=== PATIENT | male | born 1960 | race Caucasian/White ===

== ENCOUNTER → 2017-09-18 12:30 | Outpatient (CLI) | payer BC, SELFPAY ==
--- NOTE | 2017-09-18 | DI.US.S_ITS ---
PROCEDURE: US PERIPH VENOUS LOW EXTREM LT INDICATIONS: Left leg cellulitis TECHNIQUE: Real-time imaging, as well as color and pulse Doppler interrogation, were performed of the lower extremity deep veins from the inguinal ligament to the popliteal fossa. COMPARISON: None. FINDINGS: The deep veins are normally compressible, and free of intraluminal thrombus. Color and pulse Doppler demonstrate normal phasic intraluminal flow. There is normal augmentation response to distal compression maneuver. IMPRESSION: Negative for DVT Dictated by: Noah Jane M.D. on 09/18/2017 at 14:19 Approved by: Noah Jane M.D. on 09/18/2017 at 14:19
== END ==
PROVIDERS: Family Provider Family Medicine; PCP Family Medicine; Visit Provider Family Medicine
DX: L03.116 Cellulitis of left lower limb (principal)
CPT/HCPCS: 93971

== ENCOUNTER → 2017-09-21 12:59 | Outpatient (CLI) | payer BC, SELFPAY | PROVIDERS: Family Provider Family Medicine; PCP Family Medicine; Visit Provider Internal Medicine | DX: L97.822 Non-pressure chronic ulcer of other part of left lower leg with fat layer exposed (principal); L03.116 Cellulitis of left lower limb; E11.628 Type 2 diabetes mellitus with other skin complications | CPT/HCPCS: 11042; 11045; 87070; 87077; 87186; 87205; 99215 ==

== ENCOUNTER → 2017-09-21 17:10 | Outpatient (REF) | payer BC, SELFPAY | LOC: LAB 17:10 | PROVIDERS: Family Provider Family Medicine; PCP Family Medicine; Visit Provider Internal Medicine | DX: L08.9 Local infection of the skin and subcutaneous tissue, unspecified (principal) | CPT/HCPCS: 87070; 87075; 87077; 87186; 87205 ==

== ENCOUNTER → 2017-09-28 09:22 | Outpatient (CLI) | payer BC, SELFPAY | PROVIDERS: Family Provider Family Medicine; PCP Family Medicine; Visit Provider Internal Medicine | DX: L03.116 Cellulitis of left lower limb (principal); B95.2 Enterococcus as the cause of diseases classified elsewhere; A49.01 Methicillin susceptible Staphylococcus aureus infection, unspecified site | CPT/HCPCS: 99213 ==

== ENCOUNTER → 2017-10-02 15:38 | Outpatient (CLI) | payer BC, SELFPAY | PROVIDERS: Family Provider Family Medicine; PCP Family Medicine; Visit Provider Internal Medicine | DX: L97.821 Non-pressure chronic ulcer of other part of left lower leg limited to breakdown of skin (principal); L03.116 Cellulitis of left lower limb; L84 Corns and callosities | CPT/HCPCS: 99212 ==

== ENCOUNTER → 2017-10-09 09:28 | Outpatient (CLI) | payer BC, SELFPAY ==
--- NOTE | 2017-10-09 | OV.WND_ITS ---
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 Allergies NKDA HPI This information was obtained from the patient 10/09/17. Seen by Dr. Luna. The patient does not report drainage associated with the left lower leg cellulitis nor non-pressure ulcers since his last visit. 10/02/17. Seen by Dr. Luna. The patient will complete his course of levofloxacin today that's treating refractory cellulitis of the left lower leg and he does not report significant drainage from the associated non-pressure ulcers nor pain in the leg. His blood sugars continue to be well controlled and he's applying Kersal as recommended to the heave callus over the plantar surface of the left 1st toe. He states the bleeding reported last week from this site has stopped also. 09/28/17. Seen by Dr. Luna. The patient was started on Levofloxacin following his last visit for the MSSA and Enterococcus positive wound culture that was taken of the left lower leg non- pressure ulcer. He reports some sleeplessness in the past 2 nights and asks whether this could be related to the levofloxacin. In general he feels the leg swelling and erythema has improved and there's been minimal drainage since his visit last week. Of note, he was previously on Bactrim to which the MSSA was resistant and which wound not cover for Enterococcus. 09/21/17. Seen by Dr. Luna. The patient's new to our clinic and presents with left lower leg non-pressure ulcers that started during a severe episode of cellulitis about 3 weeks ago. He continues on Bactrim and feels the cellulitis continues to resolve and he does not report associated pain or feeling unwell in general. He has diabetes and his blood sugars are historically fairly well controlled with his most recent A1c around 7. Past Medical History This information was obtained from the patient Patient has a medical history of: Type II Diabetes Hyponatremia - 09/04/2017 Cellulitis - 09/04/2017 Arthritis Hypertension Back pain Complaints and Symptoms This information was obtained from the patient Patient complains of: General Notes: I have reviewed and concur with the Review of Systems and Past Family Social History documents completed by the clinician, I have reviewed and concur with the Wound Assessment document completed by the clinician Cardiovascular (Central/Peripheral): Lower extremity (leg) swelling Integumentary (Hair/Skin/Nails): Open Sore Neurological: Loss of Protective Sensation Prior Wound History: Drainage, Erythema Patient denies complaints or symptoms related to: Cardiovascular (Central/Peripheral): Intermittent Claudication, Lower extremity (leg) resting pain Constitutional Symptoms (General Health): Chills, Fever Ear/Nose/Mouth/Throat: Hearing Loss / Aid Hematologic/Lymphatic: Bleeding / Clotting Disorders, Bleeding Tendency Musculoskeletal: Assistive Devices Prior Wound History: Pain Psychiatric: Memory Loss Respiratory: Oxygen Use, Shortness of Breath OBJECTIVE Constitutional BP elevated; Afebrile; Alert and in no distress. Well developed. Alert. Clean appearing.. Height/Length: 72 in (182.88 cm), Weight: 277.8 lbs (126.27 kgs), BMI: 37.7, Temperature: 97.9 ?F (36.61 ?C), Pulse: 88 bpm, Respiratory Rate: 18 breaths/min, Blood Pressure: 148/88 mmHg, Capillary Blood Glucose: 138 mg/dl, Pulse Oximetry: 97 %. Vital Signs Notes: Glucose per patient. Integumentary (Hair, Skin) Refer to appropriate clinician wound documentation for this visit.. Wound #2 Left, Medial Leg is an acute Full Thickness Cellulitis and has received an outcome of Healed - no new wound(s). Subsequent wound encounter measurements are 0cm length x 0cm width with no measurable depth, with an area of 0 sq cm . No tunneling has been noted. No sinus tract has been noted. No undermining has been noted. There was no drainage noted. The patient reports a wound pain of level 0/10. The wound margin is irregular. Wound bed has Yes epithelialization, No eschar, No slough, No granulation. The periwound skin moisture is normal. The periwound skin exhibited: Edema, Ecchymosis. The periwound skin did not exhibit: Erythema. The temperature of the periwound skin is Warm. Periwound skin does not exhibit signs or symptoms of infection. Local Pulse is Doppler. Neurological: Cranial nerves grossly intact with symmetric function normal by informal observation.. Additional Information ACE/Vascular Completed?: Did have two Venous/Arterial studies done. One at [facility] and then on September 20 at [facility]. ASSESSMENT Active Problems ICD-10 (Encounter Diagnosis) L97.822 - Non-pressure chronic ulcer of other part of left lower leg with fat layer exposed PLAN Wound Orders: Wound #2 Left, Medial Leg Cleanser May Shower. - May shower Additional Orders: Topical Treatments Moisturizing lotion to surround skin. - Apply Ammonium Lactate lotion to leg for one week. Follow-Up Appointments Other information: If you develop fever, chills, increased pain, drainage, redness or swelling please call our office. If after hours, respond to the ER. Should you experience any significant changes in your wound(s) or have any questions regarding your home care instructions please contact the wound center @ [phone]. If after hours, contact your primary care physician or go to the hospital emergency room. - No further appointment at this time. Discharge from Outpatient Services. Scribing Attestation I attest, as the nurse, that I scribed these orders for the physician. I've reviewed the clinician's documentation and agree with the evaluation and plan as written. In addition the patient's last remiaining complex wound is now healed. The patient is invited to return to our clinic for treatment of any future complex wounds. Post wound care and strategies to avoid recurrences were discussed. Electronic Signature(s) Signed By: Date: Armaan Luna MD 10/10/2017 10:10:58 Armaan Luna MD 10/10/2017 10:10:58 Entered By: Armaan Luna on 10/09/2017 13:34:00
== END ==
PROVIDERS: Family Provider Family Medicine; PCP Family Medicine; Visit Provider Internal Medicine
DX: Z48.817 Encounter for surgical aftercare following surgery on the skin and subcutaneous tissue (principal)
CPT/HCPCS: 99212

== ENCOUNTER → 2018-06-04 09:44 | Outpatient (CLI) | payer OTHER, SELFPAY ==
[2018-06-04 12:18] LABS: Uric Acid 6.5 mg/dL (3.5-8.5)
== END ==
PROVIDERS: PCP Family Medicine; Visit Provider Family Medicine
DX: M10.9 Gout, unspecified (principal)
CPT/HCPCS: 36415; 84550

== ENCOUNTER → 2019-05-02 10:40 | Outpatient (CLI) | payer OTHER, SELFPAY | PROVIDERS: Family Provider Family Medicine; PCP Family Medicine; Referring Provider Podiatrist; Visit Provider Family Medicine | DX: E11.621 Type 2 diabetes mellitus with foot ulcer (principal); L97.511 Non-pressure chronic ulcer of other part of right foot limited to breakdown of skin; E11.40 Type 2 diabetes mellitus with diabetic neuropathy, unspecified; R60.0 Localized edema | CPT/HCPCS: 11042; 99214 ==

== ENCOUNTER → 2019-05-08 09:55 | Outpatient (CLI) | payer OTHER, SELFPAY | PROVIDERS: Family Provider Family Medicine; PCP Family Medicine; Visit Provider Family Medicine | DX: E11.621 Type 2 diabetes mellitus with foot ulcer (principal); L97.511 Non-pressure chronic ulcer of other part of right foot limited to breakdown of skin; E11.40 Type 2 diabetes mellitus with diabetic neuropathy, unspecified; R60.0 Localized edema | CPT/HCPCS: 11042 ==

== ENCOUNTER → 2019-05-16 14:11 | Outpatient (CLI) | payer OTHER, SELFPAY | PROVIDERS: Family Provider Family Medicine; PCP Family Medicine; Visit Provider Family Medicine | DX: E11.621 Type 2 diabetes mellitus with foot ulcer (principal); L97.511 Non-pressure chronic ulcer of other part of right foot limited to breakdown of skin; R60.0 Localized edema; E11.40 Type 2 diabetes mellitus with diabetic neuropathy, unspecified | CPT/HCPCS: 97597 ==

== ENCOUNTER → 2019-05-24 12:55 | Outpatient (CLI) | payer OTHER, SELFPAY | PROVIDERS: Family Provider Family Medicine; PCP Family Medicine; Visit Provider Family Medicine | DX: E11.621 Type 2 diabetes mellitus with foot ulcer (principal); L97.511 Non-pressure chronic ulcer of other part of right foot limited to breakdown of skin; E11.40 Type 2 diabetes mellitus with diabetic neuropathy, unspecified | CPT/HCPCS: 11042 ==

== ENCOUNTER → 2019-05-30 13:05 | Outpatient (CLI) | payer OTHER, SELFPAY | PROVIDERS: Family Provider Family Medicine; PCP Family Medicine; Visit Provider Family Medicine | DX: E11.621 Type 2 diabetes mellitus with foot ulcer (principal); L97.511 Non-pressure chronic ulcer of other part of right foot limited to breakdown of skin; E11.40 Type 2 diabetes mellitus with diabetic neuropathy, unspecified | CPT/HCPCS: 11042 ==

== ENCOUNTER → 2019-06-05 10:52 | Outpatient (CLI) | payer OTHER, SELFPAY | PROVIDERS: Family Provider Family Medicine; PCP Family Medicine; Referring Provider Family Medicine; Visit Provider Family Medicine | DX: E11.621 Type 2 diabetes mellitus with foot ulcer (principal); L97.511 Non-pressure chronic ulcer of other part of right foot limited to breakdown of skin; E11.40 Type 2 diabetes mellitus with diabetic neuropathy, unspecified; R60.0 Localized edema | CPT/HCPCS: 11042; 87070; 87075; 87077; 87147; 87186; 87205 ==

== ENCOUNTER → 2019-06-05 11:49 | Outpatient (CLI) | payer OTHER, SELFPAY ==
--- NOTE | 2019-06-05 | DI.RAD.S_ITS ---
PROCEDURE: XR FOOT RT MIN 3V INDICATIONS: E11.621 TECHNIQUE: 3 views of the foot were acquired. COMPARISON: [facility], CR, XR FOOT 3 VIEWS WEIGHT BEARING LEFT, 03/21/2018, 8:16. FINDINGS: Bones: No fractures or dislocations. No suspicious bony lesions. There is mild metatarsus primus varus, without significant hallux valgus. There is mild valgus angulation at the third MTP joint. Plantar fascia and Achilles tendon insertion spurring and calcification is present, indicating a moderate degree of enthesopathy. Soft tissues: No tibiotalar joint effusion. Achilles tendon appears normal. IMPRESSION: No trauma found. Podiatry related findings as discussed. Dictated by: Guillermo Nguyen M.D. on 06/05/2019 at 12:46 Approved by: Guillermo Nguyen M.D. on 06/05/2019 at 12:48
== END ==
PROVIDERS: Family Provider Family Medicine; PCP Family Medicine; Referring Provider Family Medicine; Visit Provider Family Medicine
DX: E11.621 Type 2 diabetes mellitus with foot ulcer (principal); M20.31 Hallux varus (acquired), right foot; M77.9 Enthesopathy, unspecified; L97.511 Non-pressure chronic ulcer of other part of right foot limited to breakdown of skin; E11.40 Type 2 diabetes mellitus with diabetic neuropathy, unspecified; R60.0 Localized edema
CPT/HCPCS: 11042; 73630; 87070; 87075; 87077; 87147; 87186; 87205

== ENCOUNTER → 2019-06-13 10:41 | Outpatient (CLI) | payer OTHER, SELFPAY | PROVIDERS: Family Provider Family Medicine; PCP Family Medicine; Referring Provider Family Medicine; Visit Provider Family Medicine | DX: E11.621 Type 2 diabetes mellitus with foot ulcer (principal); L97.511 Non-pressure chronic ulcer of other part of right foot limited to breakdown of skin; L08.9 Local infection of the skin and subcutaneous tissue, unspecified; E11.40 Type 2 diabetes mellitus with diabetic neuropathy, unspecified | CPT/HCPCS: 11042; 99214 ==

== ENCOUNTER → 2019-06-19 10:03 | Outpatient (CLI) | payer OTHER, SELFPAY | PROVIDERS: Family Provider Family Medicine; PCP Family Medicine; Referring Provider Family Medicine; Visit Provider Family Medicine | DX: E11.621 Type 2 diabetes mellitus with foot ulcer (principal); L97.511 Non-pressure chronic ulcer of other part of right foot limited to breakdown of skin | CPT/HCPCS: 11042 ==

== ENCOUNTER → 2019-07-03 10:17 | Outpatient (CLI) | payer OTHER, SELFPAY | PROVIDERS: Family Provider Family Medicine; PCP Family Medicine; Referring Provider Family Medicine; Visit Provider Family Medicine | DX: E11.621 Type 2 diabetes mellitus with foot ulcer (principal); L97.511 Non-pressure chronic ulcer of other part of right foot limited to breakdown of skin | CPT/HCPCS: 11042 ==

== ENCOUNTER → 2019-07-10 09:47 | Outpatient (CLI) | payer OTHER, SELFPAY | PROVIDERS: Family Provider Family Medicine; PCP Family Medicine; Referring Provider Family Medicine; Visit Provider Family Medicine | DX: E11.621 Type 2 diabetes mellitus with foot ulcer (principal); L97.511 Non-pressure chronic ulcer of other part of right foot limited to breakdown of skin | CPT/HCPCS: 11042 ==

== ENCOUNTER → 2019-07-17 09:35 | Outpatient (CLI) | payer OTHER, SELFPAY | PROVIDERS: Family Provider Family Medicine; PCP Family Medicine; Referring Provider Family Medicine; Visit Provider Family Medicine | DX: E11.621 Type 2 diabetes mellitus with foot ulcer (principal); L97.511 Non-pressure chronic ulcer of other part of right foot limited to breakdown of skin | CPT/HCPCS: 11042 ==

== ENCOUNTER → 2019-08-22 09:26 | Outpatient (CLI) | payer OTHER, SELFPAY | PROVIDERS: Family Provider Family Medicine; PCP Family Medicine; Referring Provider Family Medicine; Visit Provider Family Medicine | DX: E11.621 Type 2 diabetes mellitus with foot ulcer (principal); E11.40 Type 2 diabetes mellitus with diabetic neuropathy, unspecified | CPT/HCPCS: 99212; 99213 ==

== ENCOUNTER → 2020-03-03 16:07 | Outpatient (CLI) | payer OTHER, SELFPAY ==
--- NOTE | 2020-03-03 16:11 | DI.RAD.S_ITS ---
PROCEDURE: XR RIBS RT MIN 3V W CXR 1V INDICATIONS: RIGHT POST RIB PAIN TECHNIQUE: To views of the right ribs were acquired, along with a single view chest. COMPARISON: None. FINDINGS: Surgical changes and devices: None. Bones and chest wall: No fractures or dislocations. No suspicious bony lesions. Overlying soft tissues appear unremarkable. Lungs and pleura: No pleural effusions or pneumothorax. Lungs appear clear. Mediastinum: Mediastinal contours appear normal. Heart size is normal. IMPRESSION: No rib trauma found, source of right-sided posterior rib pain is not seen. Depending on the clinical status follow-up by nuclear medicine bone scan may become necessary. Dictated by: Guillermo Nguyen M.D. on 03/03/2020 at 17:28 Approved by: Guillermo Nguyen M.D. on 03/03/2020 at 17:29
== END ==
PROVIDERS: Family Provider Family Medicine; PCP Family Medicine; Referring Provider Family Medicine; Visit Provider Family Medicine
DX: R07.81 Pleurodynia (principal)
CPT/HCPCS: 71101

== ENCOUNTER 2020-05-06 11:15 | Outpatient (RCR) | payer OTHER, SELFPAY ==
--- NOTE | 2020-04-16 17:54 | PT.OIE ---
Current Diagnoses Pain in right shoulder (04/16/20) Stiffness of right shoulder, not elsewhere classified (04/16/20) Pain in thoracic spine (04/16/20) Dorsalgia, unspecified (04/16/20) Abnormal posture (04/16/20) Sprain of right rotator cuff capsule, subsequent encounter (04/16/20) Visit Care Team Role Provider Type Newton Purdy MD Attending Provider Physician Primary Care Provider Referring Provider Specialty: [facility] Address: [address] [place] [address], [facility] [place], [facility] Email: [email or web address] Physical Therapy Initial Evaluation PT-OP-A Visit Information Start: 04/16/20 17:05 Freq: Status: Active Protocol: Document 04/16/20 09:45 DCW (Rec: 04/16/20 17:54 DCW [id number]) Out-Patient Physical Therapy Visit Information Visit Information Visit Type Initial Evaluation Visit Start Time 09:45 Visit Stop Time 10:25 Total Visit Minutes 40 Visit Number 1 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 Pt notes that he was reshingling his roof, and at two separate times, slipped on the plywood and fell onto his back. Notes he did not fall off the roof, just slipped and landed on the roof. Pt admits that after the second time, he just laid there for 30 minutes to make sure he did not injure himself severely. Notes his back pain did not begin immediately, he thinks the actual pain started in December, but has been worsening since then. Pain is mainly on the right side, and feels better if he positions himself into right lateral trunk flexion, which is giving him very poor posture. Additionally, pt notes that one month ago, his shoulder began to get really sore, and his PCP told him it was a rotator cuff problem and gave him anti-inflammatory pills, which unfortunately pt had a bad reaction to and needed to stop taking them. Prior Treatments and Tests Thoracic x-ray: IMPRESSION: No rib trauma found, source of right-sided posterior rib pain is not seen. Depending on the clinical status follow-up by nuclear medicine bone scan may become necessary.per Guillermo Nguyen M.D. on 2019 PT-OP-C Subjective Start: 04/16/20 17:05 Freq: Status: Active Protocol: Document 04/16/20 09:45 DCW (Rec: 04/16/20 17:54 [facility] [id number]) OP-PT Subjective Patient Comments Patient Comments I'm just falling apart dramatically. Patient Questionnaires Oswestry Low Back Index Oswestry Score 38% Oswestry Impairment 20 to 39% Impaired (Score 20- 39) OP-PT Pain Assessment Location Right Shoulder Intensity 5 Scale Used Numeric (0 - 10) Right Back Pain Location Details Right thoracic spine Intensity 6 Scale Used Numeric (0 - 10) PT-OP-E Functional Tests Start: 04/16/20 17:05 Freq: Status: Active Protocol: Document 04/16/20 09:45 DCW (Rec: 04/16/20 17:54 [facility] [id number]) Functional Tests Apley's Scratch Test Action 1- Left Posterior opposite should Action 1- Right Anterior opposite shoulder Action 2- Left T5 Action 2- Right C7 Action 3- Left T9 Action 3- Right L3 PT-OP-F Manual Assessment Start: 04/16/20 17:05 Freq: Status: Active Protocol: Document 04/16/20 09:45 DCW (Rec: 04/16/20 17:54 [facility] [id number]) Manual Assessments Soft Tissue Assessment Soft Tissue Mobility Assessment Moderate-severe tone with tenderness to palpation 2/4: pain with wincing along R Thoracic paraspinals. Limits left spinal rotation and lateral flexion secondary to pain. At rest, pt sits with a right scoliosis for comfort. Joint Mobility Assessment Joint Mobility Assessment Severe tone in right pec results in depression and anterior shift of right GH joint. PT-OP-J Posture/Palpation/Skin Start: 04/16/20 17:05 Freq: Status: Active Protocol: Document 04/16/20 09:45 DCW (Rec: 04/16/20 17:54 DCW [id number]) Posture Evaluation Position Sitting T-Spine Posture Flexible Scoliosis on (R) Shoulder Posture (R) Forward Scapula Posture (R) Protracted,(R) Depressed PT-OP-L Special Tests Start: 04/16/20 17:05 Freq: Status: Active Protocol: Document 04/16/20 09:45 DCW (Rec: 04/16/20 17:54 DCW [id number]) Special Tests Shoulder Special Tests Passive ER Rotator Cuff Test Results Positive R Empty Can Test Results Positive R Lift-Off Rotator Cuff Test Results Positive R Painful Arc Test Results Positive R Belly Press Test Results Negative PT-OP-Q Treatments Start: 04/16/20 17:05 Freq: Status: Active Protocol: Document 04/16/20 09:45 DCW (Rec: 04/16/20 17:54 DCW [id number]) Therapeutic Exercises Sitting Exercises 1 Sitting Exercise Name Lateral trunk flexion Side left Standing Exercises 1 Standing Exercise Name Doorway/corner pec stretch Side bilateral PT-OP-T Assessment and Plan Start: 04/16/20 17:05 Freq: Status: Active Protocol: Document 04/16/20 09:45 DCW (Rec: 04/16/20 17:54 DCW [id number]) Physical Therapy Assessment Rehab Potential Rehabilitation Potential Excellent Evaluation Complexity Number of Personal Factors/Comorbidities 1-2 Number of Body Systems Impaired 3 Clinical Presentation at Evaluation Stable Impairments Impairments Functional Activities, Functional Mobility,Pain, Posture,ROM,Soft Tissue Mobility,Strength,Tone Goals Three Impairment R shoulder ROM and pain limit pt's overhead activities Shelter Goal (LTG) Pt R shoulder special tests ( Lift off, painful arc, Passive ER) to test negative to demonstrate pt's improved ability to perform oil changes on his car. LTG Duration 06/17/20 Two Impairment Pt unable to position in neutral spine d/t pain causing flexible scoliosis Judicial Reporter Goal (LTG) Pt to stand with appropriate spine and shoulder positioning with no increased pain LTG Duration 06/17/20 One Impairment Pt does not have an appropriate home exercise program Short Term Goal (STG) Pt to be independent and compliant with an appropriate HEP STG Duration 05/17/20 Assessment Summary Assessment Pt presents to skilled therapy with signs and symptoms consistent with thoracic muscle strain, and right rotator cuff strain, likely subscapularis or supraspinatus . Pt at rest has poor posture due to pain and tightness of right thoracic paraspinals causing a flexible right scoliosis, and a severe pec tightness causing an anterior shift in his right shoulder. Pt should benefit from therapeutic intervention consisting of STM to his thoracic paraspinals and right shoulder, pain-control modalities, shoulder and core strengthening, and ROM/ flexibility. Physical Therapy Plan Frequency and Duration Frequency of Treatment 2x/Week Duration of Treatment Two months Plan of Care Start Date 04/16/20 Plan of Care End Date 06/17/20 Therapeutic Interventions Therapeutic Interventions Home Exercise Program,Joint Mobilizations,Manual Therapy, Patient/Caregiver Education, Self-Care/Home Management,Soft Tissue Mobilization, Therapeutic Activities, Therapeutic Exercises Modalities Cold Pack/Ice Massage,Electric Stimulation,Hot Packs, Ultrasound Next Visit Focus/Plan Next Note Type Treatment Note Next Visit Plan Shoulder ROM/strengthening, STM on mid-back and R shoulder , Posture training
--- NOTE | 2020-04-16 17:55 | PT.OPPOC ---
Physical, Occupational & Speech Therapy At [facility] Current Diagnoses Pain in right shoulder (04/16/20) Stiffness of right shoulder, not elsewhere classified (04/16/20) Pain in thoracic spine (04/16/20) Dorsalgia, unspecified (04/16/20) Abnormal posture (04/16/20) Sprain of right rotator cuff capsule, subsequent encounter (04/16/20) Visit Care Team Role Provider Type Newton Purdy MD Attending Provider Physician Primary Care Provider Referring Provider Specialty: [facility] Address: [address] [place] [address] [place], [place], [facility] Email: [email or web address] Plan Of Care PT-OP-T Assessment and Plan Start: 04/16/20 17:05 Freq: Status: Active Protocol: Document 04/16/20 09:45 DCW (Rec: 04/16/20 17:54 DCW [id number]) Physical Therapy Assessment Rehab Potential Rehabilitation Potential Excellent Evaluation Complexity Number of Personal Factors/Comorbidities 1-2 Number of Body Systems Impaired 3 Clinical Presentation at Evaluation Stable Impairments Impairments Functional Activities, Functional Mobility,Pain, Posture,ROM,Soft Tissue Mobility,Strength,Tone Goals Three Impairment R shoulder ROM and pain limit pt's overhead activities Correction Goal (LTG) Pt R shoulder special tests ( Lift off, painful arc, Passive ER) to test negative to demonstrate pt's improved ability to perform oil changes on his car. LTG Duration 06/17/20 Two Impairment Pt unable to position in neutral spine d/t pain causing flexible scoliosis Marble Polisher Goal (LTG) Pt to stand with appropriate spine and shoulder positioning with no increased pain LTG Duration 06/17/20 One Impairment Pt does not have an appropriate home exercise program Short Term Goal (STG) Pt to be independent and compliant with an appropriate HEP STG Duration 05/17/20 Assessment Summary Assessment Pt presents to skilled therapy with signs and symptoms consistent with thoracic muscle strain, and right rotator cuff strain, likely subscapularis or supraspinatus . Pt at rest has poor posture due to pain and tightness of right thoracic paraspinals causing a flexible right scoliosis, and a severe pec tightness causing an anterior shift in his right shoulder. Pt should benefit from therapeutic intervention consisting of STM to his thoracic paraspinals and right shoulder, pain-control modalities, shoulder and core strengthening, and ROM/ flexibility. Physical Therapy Plan Frequency and Duration Frequency of Treatment 2x/Week Duration of Treatment Two months Plan of Care Start Date 04/16/20 Plan of Care End Date 06/17/20 Therapeutic Interventions Therapeutic Interventions Home Exercise Program,Joint Mobilizations,Manual Therapy, Patient/Caregiver Education, Self-Care/Home Management,Soft Tissue Mobilization, Therapeutic Activities, Therapeutic Exercises Modalities Cold Pack/Ice Massage,Electric Stimulation,Hot Packs, Ultrasound Next Visit Focus/Plan Next Note Type Treatment Note Next Visit Plan Shoulder ROM/strengthening, STM on mid-back and R shoulder , Posture training Plan of Care Dates Plan of Care Start Date 04/16/20 Plan of Care End Date 06/17/20 Electronically Signed by: Kashmir Padron, PT 04/16/20 1017 Please Sign and Return: I have reviewed this Plan of Care and certify that the skilled therapy services above are required to meet the patient?s needs. Physician Signature Date Printed Name and Credentials Clinical Instructor Signature Printed Name and Credentials
--- NOTE | 2020-04-27 11:56 | PT.OTN ---
Current Diagnoses Pain in right shoulder (04/27/20) Stiffness of right shoulder, not elsewhere classified (04/27/20) Pain in thoracic spine (04/27/20) Dorsalgia, unspecified (04/27/20) Abnormal posture (04/27/20) Sprain of right rotator cuff capsule, subsequent encounter (04/27/20) Physical Therapy Treatment Note PT-OP-A Visit Information Start: 04/16/20 17:05 Freq: Status: Active Protocol: Document 04/27/20 11:15 DCW (Rec: 04/27/20 11:56 DCW [id number]) Out-Patient Physical Therapy Visit Information Visit Information Visit Type Treatment Note Visit Start Time 11:15 Visit Stop Time 12:10 Total Visit Minutes 55 Visit Number 2 Number of CHILD CARE TEAM LEAD Visits 0 Evaluation Information Evaluation Date 04/16/20 PT-OP-B Current Condition Start: 04/16/20 17:05 Freq: Status: Active Protocol: Document 04/16/20 09:45 DCW (Rec: 04/16/20 17:54 DCW [id number]) Current Condition History of Current Condition Onset Date ~6 months Current Complaints Back pain, shoulder pain, abnormal posturing History of Current Condition Pt is a 59 year old male presenting with a six month history of mid-back pain following a fall. Pt notes that he was reshingling his roof, and at two separate times, slipped on the plywood and fell onto his back. Notes he did not fall off the roof, just slipped and landed on the roof. Pt admits that after the second time, he just laid there for 30 minutes to make sure he did not injure himself severely. Notes his back pain did not begin immediately, he thinks the actual pain started in December, but has been worsening since then. Pain is mainly on the right side, and feels better if he positions himself into right lateral trunk flexion, which is giving him very poor posture. Additionally, pt notes that one month ago, his shoulder began to get really sore, and his PCP told him it was a rotator cuff problem and gave him anti-inflammatory pills, which unfortunately pt had a bad reaction to and needed to stop taking them. Prior Treatments and Tests Thoracic x-ray: IMPRESSION: No rib trauma found, source of right-sided posterior rib pain is not seen. Depending on the clinical status follow-up by nuclear medicine bone scan may become necessary.per Guillermo Nguyen M.D. on 2019 PT-OP-C Subjective Start: 04/16/20 17:05 Freq: Status: Active Protocol: Document 04/27/20 11:15 DCW (Rec: 04/27/20 11:56 DCW [id number]) OP-PT Subjective Patient Comments Patient Comments It's not really any different . I was doing some plastering in my house over the weekend, and I paid for it the later that night, the pain hits later on, usually at night. PT-OP-E Functional Tests Start: 04/16/20 17:05 Freq: Status: Active Protocol: Document 04/16/20 09:45 DCW (Rec: 04/16/20 17:54 DCW [id number]) Functional Tests Apley's Scratch Test Action 1- Left Posterior opposite should Action 1- Right Anterior opposite shoulder Action 2- Left T5 Action 2- Right C7 Action 3- Left T9 Action 3- Right L3 PT-OP-F Manual Assessment Start: 04/16/20 17:05 Freq: Status: Active Protocol: Document 04/16/20 09:45 DCW (Rec: 04/16/20 17:54 DCW [id number]) Manual Assessments Soft Tissue Assessment Soft Tissue Mobility Assessment Moderate-severe tone with tenderness to palpation 2/4: pain with wincing along R Thoracic paraspinals. Limits left spinal rotation and lateral flexion secondary to pain. At rest, pt sits with a right scoliosis for comfort. Joint Mobility Assessment Joint Mobility Assessment Severe tone in right pec results in depression and anterior shift of right GH joint. PT-OP-J Posture/Palpation/Skin Start: 04/16/20 17:05 Freq: Status: Active Protocol: Document 04/16/20 09:45 DCW (Rec: 04/16/20 17:54 DCW [id number]) Posture Evaluation Position Sitting T-Spine Posture Flexible Scoliosis on (R) Shoulder Posture (R) Forward Scapula Posture (R) Protracted,(R) Depressed PT-OP-L Special Tests Start: 04/16/20 17:05 Freq: Status: Active Protocol: Document 04/16/20 09:45 DCW (Rec: 04/16/20 17:54 DCW [id number]) Special Tests Shoulder Special Tests Passive ER Rotator Cuff Test Results Positive R Empty Can Test Results Positive R Lift-Off Rotator Cuff Test Results Positive R Painful Arc Test Results Positive R Belly Press Test Results Negative PT-OP-Q Treatments Start: 04/16/20 17:05 Freq: Status: Active Protocol: Document 04/27/20 11:15 DCW (Rec: 04/27/20 11:56 DCW [id number]) Cardio Equipment Upper Body Ergometer (UBE) Duration (Minutes) 5 RPM 60 Seat Position 15 Height 3.5 Other Fwd/Bkwd Therapeutic Exercises Standing Exercises 4 Standing Exercise Name IR/ER Side right Resistance Lv 2 Equipment Used T-band 3 Standing Exercise Name Rows Side bilateral Resistance Lv 2 Equipment Used T-band 2 Standing Exercise Name Shoulder Extension Side bilateral Resistance Lv 2 Equipment Used T-band Manual Therapy Treatment Soft Tissue Mobilization 3 Body Location R Infraspinatus Mobilization Type Strumming,Sustained Pressure Intensity/Depth Moderate Body Position Supine 2 Body Location R UT Mobilization Type Strumming,Sustained Pressure Intensity/Depth Moderate Body Position Supine 1 Body Location Pec Mobilization Type Strumming,Sustained Pressure Intensity/Depth Moderate Body Position Supine Joint Mobilizations 2 Joint R Scapulothoracic Direction Lateral Grade III Body Position Supine 1 Joint R GH Direction Inferior Grade III Body Position Supine PT-OP-R Modalities Start: 04/16/20 17:05 Freq: Status: Active Protocol: Document 04/27/20 11:15 DCW (Rec: 04/27/20 11:56 DCW [id number]) Electric Stimulation Electric Stimulation Interferential Current (IFC) Body Location R Shoulder Duration (Minutes) 15 Cycle Continuous Patient Position Supine PT-OP-T Assessment and Plan Start: 04/16/20 17:05 Freq: Status: Active Protocol: Document 04/27/20 11:15 DCW (Rec: 04/27/20 11:56 DCW [id number]) Physical Therapy Assessment Impairments Impairments Functional Activities, Functional Mobility,Pain, Posture,ROM,Soft Tissue Mobility,Strength,Tone Goals Three Impairment R shoulder ROM and pain limit pt's overhead activities Correction Goal (LTG) Pt R shoulder special tests ( Lift off, painful arc, Passive ER) to test negative to demonstrate pt's improved ability to perform oil changes on his car. LTG Duration 06/17/20 Two Impairment Pt unable to position in neutral spine d/t pain causing flexible scoliosis Traffic Circuit Engineer Goal (LTG) Pt to stand with appropriate spine and shoulder positioning with no increased pain LTG Duration 06/17/20 One Impairment Pt does not have an appropriate home exercise program Short Term Goal (STG) Pt to be independent and compliant with an appropriate HEP STG Duration 05/17/20 Assessment Summary Assessment Worked some on shoulder strengthening and manual treatment. Pt clearly experiencing increased pain during treatment, but wanting to push through. Physical Therapy Plan Frequency and Duration Frequency of Treatment 2x/Week Duration of Treatment Two months Plan of Care Start Date 04/16/20 Plan of Care End Date 06/17/20 Therapeutic Interventions Therapeutic Interventions Home Exercise Program,Joint Mobilizations,Manual Therapy, Patient/Caregiver Education, Self-Care/Home Management,Soft Tissue Mobilization, Therapeutic Activities, Therapeutic Exercises Modalities Cold Pack/Ice Massage,Electric Stimulation,Hot Packs, Ultrasound Next Visit Focus/Plan Next Note Type Treatment Note Next Visit Plan Shoulder ROM/strengthening, STM on mid-back and R shoulder , Posture training
--- NOTE | 2020-04-29 12:01 | PT.OTN ---
Current Diagnoses Pain in right shoulder (04/29/20) Stiffness of right shoulder, not elsewhere classified (04/29/20) Pain in thoracic spine (04/29/20) Dorsalgia, unspecified (04/29/20) Abnormal posture (04/29/20) Sprain of right rotator cuff capsule, subsequent encounter (04/29/20) Physical Therapy Treatment Note PT-OP-A Visit Information Start: 04/16/20 17:05 Freq: Status: Active Protocol: Document 04/29/20 11:15 DCW (Rec: 04/29/20 12:01 DCW [id number]) Out-Patient Physical Therapy Visit Information Visit Information Visit Type Treatment Note Visit Start Time 11:15 Visit Stop Time 12:00 Total Visit Minutes 45 Visit Number 3 Number of INTERPERSONAL COMMUNICATIONS PROFESSOR Visits 0 Evaluation Information Evaluation Date 04/16/20 PT-OP-B Current Condition Start: 04/16/20 17:05 Freq: Status: Active Protocol: Document 04/16/20 09:45 DCW (Rec: 04/16/20 17:54 DCW [id number]) Current Condition History of Current Condition Onset Date ~6 months Current Complaints Back pain, shoulder pain, abnormal posturing History of Current Condition Pt is a 59 year old male presenting with a six month history of mid-back pain following a fall. Pt notes that he was reshingling his roof, and at two separate times, slipped on the plywood and fell onto his back. Notes he did not fall off the roof, just slipped and landed on the roof. Pt admits that after the second time, he just laid there for 30 minutes to make sure he did not injure himself severely. Notes his back pain did not begin immediately, he thinks the actual pain started in December, but has been worsening since then. Pain is mainly on the right side, and feels better if he positions himself into right lateral trunk flexion, which is giving him very poor posture. Additionally, pt notes that one month ago, his shoulder began to get really sore, and his PCP told him it was a rotator cuff problem and gave him anti-inflammatory pills, which unfortunately pt had a bad reaction to and needed to stop taking them. Prior Treatments and Tests Thoracic x-ray: IMPRESSION: No rib trauma found, source of right-sided posterior rib pain is not seen. Depending on the clinical status follow-up by nuclear medicine bone scan may become necessary.per Guillermo Nguyen M.D. on 2019 PT-OP-C Subjective Start: 04/16/20 17:05 Freq: Status: Active Protocol: Document 04/29/20 11:15 DCW (Rec: 04/29/20 12:01 DCW [id number]) OP-PT Subjective Patient Comments Patient Comments Pt notes his shoulder is miserable today, continued to feel tingling and soreness off and on since e-stim. PT-OP-E Functional Tests Start: 04/16/20 17:05 Freq: Status: Active Protocol: Document 04/16/20 09:45 DCW (Rec: 04/16/20 17:54 DCW [id number]) Functional Tests Apley's Scratch Test Action 1- Left Posterior opposite should Action 1- Right Anterior opposite shoulder Action 2- Left T5 Action 2- Right C7 Action 3- Left T9 Action 3- Right L3 PT-OP-F Manual Assessment Start: 04/16/20 17:05 Freq: Status: Active Protocol: Document 04/16/20 09:45 DCW (Rec: 04/16/20 17:54 DCW [id number]) Manual Assessments Soft Tissue Assessment Soft Tissue Mobility Assessment Moderate-severe tone with tenderness to palpation 2/4: pain with wincing along R Thoracic paraspinals. Limits left spinal rotation and lateral flexion secondary to pain. At rest, pt sits with a right scoliosis for comfort. Joint Mobility Assessment Joint Mobility Assessment Severe tone in right pec results in depression and anterior shift of right GH joint. PT-OP-J Posture/Palpation/Skin Start: 04/16/20 17:05 Freq: Status: Active Protocol: Document 04/16/20 09:45 DCW (Rec: 04/16/20 17:54 DCW [id number]) Posture Evaluation Position Sitting T-Spine Posture Flexible Scoliosis on (R) Shoulder Posture (R) Forward Scapula Posture (R) Protracted,(R) Depressed PT-OP-L Special Tests Start: 04/16/20 17:05 Freq: Status: Active Protocol: Document 04/16/20 09:45 DCW (Rec: 04/16/20 17:54 DCW [id number]) Special Tests Shoulder Special Tests Passive ER Rotator Cuff Test Results Positive R Empty Can Test Results Positive R Lift-Off Rotator Cuff Test Results Positive R Painful Arc Test Results Positive R Belly Press Test Results Negative PT-OP-Q Treatments Start: 04/16/20 17:05 Freq: Status: Active Protocol: Document 04/29/20 11:15 DCW (Rec: 04/29/20 12:01 DCW [id number]) Manual Therapy Treatment Soft Tissue Mobilization 5 Body Location R Levator Body Position Supine 4 Body Location R Scalenes Body Position Supine 2 Body Location R UT Mobilization Type Strumming,Sustained Pressure Intensity/Depth Moderate Body Position Supine 1 Body Location Pec Mobilization Type Strumming,Sustained Pressure Intensity/Depth Moderate Body Position Supine Joint Mobilizations 2 Joint R Scapulothoracic Direction Lateral Grade III Body Position Supine 1 Joint R GH Direction Inferior Grade III Body Position Supine PT-OP-R Modalities Start: 04/16/20 17:05 Freq: Status: Active Protocol: Document 04/27/20 11:15 DCW (Rec: 04/27/20 11:56 DCW [id number]) Electric Stimulation Electric Stimulation Interferential Current (IFC) Body Location R Shoulder Duration (Minutes) 15 Cycle Continuous Patient Position Supine PT-OP-T Assessment and Plan Start: 04/16/20 17:05 Freq: Status: Active Protocol: Document 04/29/20 11:15 DCW (Rec: 04/29/20 12:01 DCW [id number]) Physical Therapy Assessment Impairments Impairments Functional Activities, Functional Mobility,Pain, Posture,ROM,Soft Tissue Mobility,Strength,Tone Goals Three Impairment R shoulder ROM and pain limit pt's overhead activities Learning And Development Administrator Goal (LTG) Pt R shoulder special tests ( Lift off, painful arc, Passive ER) to test negative to demonstrate pt's improved ability to perform oil changes on his car. LTG Duration 06/17/20 Two Impairment Pt unable to position in neutral spine d/t pain causing flexible scoliosis Mcfp Goal (LTG) Pt to stand with appropriate spine and shoulder positioning with no increased pain LTG Duration 06/17/20 One Impairment Pt does not have an appropriate home exercise program Short Term Goal (STG) Pt to be independent and compliant with an appropriate HEP STG Duration 05/17/20 Assessment Summary Assessment Pt arrived today with increased tone through his right UT, Levator, and scalenes. Likely caused by compensatory movement patters when attempting to perform his PT exercises on Monday. Focused today on attempting to decrease tone in these muscles to reduce radicular symptoms. Physical Therapy Plan Frequency and Duration Frequency of Treatment 2x/Week Duration of Treatment Two months Plan of Care Start Date 04/16/20 Plan of Care End Date 06/17/20 Therapeutic Interventions Therapeutic Interventions Home Exercise Program,Joint Mobilizations,Manual Therapy, Patient/Caregiver Education, Self-Care/Home Management,Soft Tissue Mobilization, Therapeutic Activities, Therapeutic Exercises Modalities Cold Pack/Ice Massage,Electric Stimulation,Hot Packs, Ultrasound Next Visit Focus/Plan Next Note Type Treatment Note Next Visit Plan Shoulder ROM/strengthening, STM on mid-back and R shoulder , Posture training
--- NOTE | 2020-05-04 11:57 | PT.OTN ---
Current Diagnoses Pain in right shoulder (05/04/20) Stiffness of right shoulder, not elsewhere classified (05/04/20) Pain in thoracic spine (05/04/20) Dorsalgia, unspecified (05/04/20) Abnormal posture (05/04/20) Sprain of right rotator cuff capsule, subsequent encounter (05/04/20) Physical Therapy Treatment Note PT-OP-A Visit Information Start: 04/16/20 17:05 Freq: Status: Active Protocol: Document 05/04/20 11:15 DCW (Rec: 05/04/20 11:57 DCW [id number]) Out-Patient Physical Therapy Visit Information Visit Information Visit Type Treatment Note Visit Start Time 11:15 Visit Stop Time 12:00 Total Visit Minutes 45 Visit Number 4 Number of OIL TRUCK DRIVER Visits 0 Evaluation Information Evaluation Date 04/16/20 PT-OP-B Current Condition Start: 04/16/20 17:05 Freq: Status: Active Protocol: Document 04/16/20 09:45 DCW (Rec: 04/16/20 17:54 DCW [id number]) Current Condition History of Current Condition Onset Date ~6 months Current Complaints Back pain, shoulder pain, abnormal posturing History of Current Condition Pt is a 59 year old male presenting with a six month history of mid-back pain following a fall. Pt notes that he was reshingling his roof, and at two separate times, slipped on the plywood and fell onto his back. Notes he did not fall off the roof, just slipped and landed on the roof. Pt admits that after the second time, he just laid there for 30 minutes to make sure he did not injure himself severely. Notes his back pain did not begin immediately, he thinks the actual pain started in December, but has been worsening since then. Pain is mainly on the right side, and feels better if he positions himself into right lateral trunk flexion, which is giving him very poor posture. Additionally, pt notes that one month ago, his shoulder began to get really sore, and his PCP told him it was a rotator cuff problem and gave him anti-inflammatory pills, which unfortunately pt had a bad reaction to and needed to stop taking them. Prior Treatments and Tests Thoracic x-ray: IMPRESSION: No rib trauma found, source of right-sided posterior rib pain is not seen. Depending on the clinical status follow-up by nuclear medicine bone scan may become necessary.per Guillermo Nguyen M.D. on 2019 PT-OP-C Subjective Start: 04/16/20 17:05 Freq: Status: Active Protocol: Document 05/04/20 11:15 DCW (Rec: 05/04/20 11:57 DCW [id number]) OP-PT Subjective Patient Comments Patient Comments Pt had a busy weekend, put away [employer] decorations, and was lifting concrete blocks trying to fix up the house. Is very sore following all this work. PT-OP-E Functional Tests Start: 04/16/20 17:05 Freq: Status: Active Protocol: Document 04/16/20 09:45 DCW (Rec: 04/16/20 17:54 DCW [id number]) Functional Tests Apley's Scratch Test Action 1- Left Posterior opposite should Action 1- Right Anterior opposite shoulder Action 2- Left T5 Action 2- Right C7 Action 3- Left T9 Action 3- Right L3 PT-OP-F Manual Assessment Start: 04/16/20 17:05 Freq: Status: Active Protocol: Document 04/16/20 09:45 DCW (Rec: 04/16/20 17:54 DCW [id number]) Manual Assessments Soft Tissue Assessment Soft Tissue Mobility Assessment Moderate-severe tone with tenderness to palpation 2/4: pain with wincing along R Thoracic paraspinals. Limits left spinal rotation and lateral flexion secondary to pain. At rest, pt sits with a right scoliosis for comfort. Joint Mobility Assessment Joint Mobility Assessment Severe tone in right pec results in depression and anterior shift of right GH joint. PT-OP-J Posture/Palpation/Skin Start: 04/16/20 17:05 Freq: Status: Active Protocol: Document 04/16/20 09:45 DCW (Rec: 04/16/20 17:54 DCW [id number]) Posture Evaluation Position Sitting T-Spine Posture Flexible Scoliosis on (R) Shoulder Posture (R) Forward Scapula Posture (R) Protracted,(R) Depressed PT-OP-L Special Tests Start: 04/16/20 17:05 Freq: Status: Active Protocol: Document 04/16/20 09:45 DCW (Rec: 04/16/20 17:54 DCW [id number]) Special Tests Shoulder Special Tests Passive ER Rotator Cuff Test Results Positive R Empty Can Test Results Positive R Lift-Off Rotator Cuff Test Results Positive R Painful Arc Test Results Positive R Belly Press Test Results Negative PT-OP-Q Treatments Start: 04/16/20 17:05 Freq: Status: Active Protocol: Document 05/04/20 11:15 DCW (Rec: 05/04/20 11:57 DCW [id number]) Manual Therapy Treatment Soft Tissue Mobilization 6 Body Location R Thoracic Paraspinals Mobilization Type Strumming,Sustained Pressure Intensity/Depth Moderate Body Position Sidelying 5 Body Location R Levator Body Position Supine 4 Body Location R Scalenes Body Position Supine 3 Body Location R Infraspinatus Mobilization Type Strumming,Sustained Pressure Intensity/Depth Moderate Body Position Supine 2 Body Location R UT Mobilization Type Strumming,Sustained Pressure Intensity/Depth Moderate Body Position Supine 1 Body Location Pec Mobilization Type Strumming,Sustained Pressure Intensity/Depth Moderate Body Position Supine Joint Mobilizations 2 Joint R Scapulothoracic Direction Lateral Grade III Body Position Supine 1 Joint R GH Direction Inferior Grade III Body Position Supine PT-OP-R Modalities Start: 04/16/20 17:05 Freq: Status: Active Protocol: Document 04/27/20 11:15 DCW (Rec: 04/27/20 11:56 DCW [id number]) Electric Stimulation Electric Stimulation Interferential Current (IFC) Body Location R Shoulder Duration (Minutes) 15 Cycle Continuous Patient Position Supine PT-OP-T Assessment and Plan Start: 04/16/20 17:05 Freq: Status: Active Protocol: Document 05/04/20 11:15 DCW (Rec: 05/04/20 11:57 DCW [id number]) Physical Therapy Assessment Impairments Impairments Functional Activities, Functional Mobility,Pain, Posture,ROM,Soft Tissue Mobility,Strength,Tone Goals Three Impairment R shoulder ROM and pain limit pt's overhead activities Butcher Scullion Goal (LTG) Pt R shoulder special tests ( Lift off, painful arc, Passive ER) to test negative to demonstrate pt's improved ability to perform oil changes on his car. LTG Duration 06/17/20 Two Impairment Pt unable to position in neutral spine d/t pain causing flexible scoliosis Butcher Scullion Goal (LTG) Pt to stand with appropriate spine and shoulder positioning with no increased pain LTG Duration 06/17/20 One Impairment Pt does not have an appropriate home exercise program Short Term Goal (STG) Pt to be independent and compliant with an appropriate HEP STG Duration 05/17/20 Assessment Summary Assessment Pt still very tender with palpation and STM, did note some decreased tone today. Pt instructed to try to take it easy, avoid lifting concrete blocks if able. Physical Therapy Plan Frequency and Duration Frequency of Treatment 2x/Week Duration of Treatment Two months Plan of Care Start Date 04/16/20 Plan of Care End Date 06/17/20 Therapeutic Interventions Therapeutic Interventions Home Exercise Program,Joint Mobilizations,Manual Therapy, Patient/Caregiver Education, Self-Care/Home Management,Soft Tissue Mobilization, Therapeutic Activities, Therapeutic Exercises Modalities Cold Pack/Ice Massage,Electric Stimulation,Hot Packs, Ultrasound Next Visit Focus/Plan Next Note Type Treatment Note Next Visit Plan Shoulder ROM/strengthening, STM on mid-back and R shoulder , Posture training
--- NOTE | 2020-05-06 12:04 | PT.OTN ---
Current Diagnoses Pain in right shoulder (05/06/20) Stiffness of right shoulder, not elsewhere classified (05/06/20) Pain in thoracic spine (05/06/20) Dorsalgia, unspecified (05/06/20) Abnormal posture (05/06/20) Sprain of right rotator cuff capsule, subsequent encounter (05/06/20) Physical Therapy Treatment Note PT-OP-A Visit Information Start: 04/16/20 17:05 Freq: Status: Active Protocol: Document 05/06/20 11:15 DCW (Rec: 05/06/20 12:04 DCW [id number]) Out-Patient Physical Therapy Visit Information Visit Information Visit Type Treatment Note Visit Start Time 11:15 Visit Stop Time 12:00 Total Visit Minutes 45 Visit Number 5 Number of ONBOARDING SPECIALIST Visits 0 Evaluation Information Evaluation Date 04/16/20 PT-OP-B Current Condition Start: 04/16/20 17:05 Freq: Status: Active Protocol: Document 04/16/20 09:45 DCW (Rec: 04/16/20 17:54 DCW [id number]) Current Condition History of Current Condition Onset Date ~6 months Current Complaints Back pain, shoulder pain, abnormal posturing History of Current Condition Pt is a 59 year old male presenting with a six month history of mid-back pain following a fall. Pt notes that he was reshingling his roof, and at two separate times, slipped on the plywood and fell onto his back. Notes he did not fall off the roof, just slipped and landed on the roof. Pt admits that after the second time, he just laid there for 30 minutes to make sure he did not injure himself severely. Notes his back pain did not begin immediately, he thinks the actual pain started in December, but has been worsening since then. Pain is mainly on the right side, and feels better if he positions himself into right lateral trunk flexion, which is giving him very poor posture. Additionally, pt notes that one month ago, his shoulder began to get really sore, and his PCP told him it was a rotator cuff problem and gave him anti-inflammatory pills, which unfortunately pt had a bad reaction to and needed to stop taking them. Prior Treatments and Tests Thoracic x-ray: IMPRESSION: No rib trauma found, source of right-sided posterior rib pain is not seen. Depending on the clinical status follow-up by nuclear medicine bone scan may become necessary.per Guillermo Nguyen M.D. on 2019 PT-OP-C Subjective Start: 04/16/20 17:05 Freq: Status: Active Protocol: Document 05/06/20 11:15 DCW (Rec: 05/06/20 12:04 DCW [id number]) OP-PT Subjective Patient Comments Patient Comments Pt notes he was not lifting anything, but he has still had a stressful week at work, which seems to make his shoulder tighten up and hurt more. PT-OP-E Functional Tests Start: 04/16/20 17:05 Freq: Status: Active Protocol: Document 04/16/20 09:45 DCW (Rec: 04/16/20 17:54 DCW [id number]) Functional Tests Apley's Scratch Test Action 1- Left Posterior opposite should Action 1- Right Anterior opposite shoulder Action 2- Left T5 Action 2- Right C7 Action 3- Left T9 Action 3- Right L3 PT-OP-F Manual Assessment Start: 04/16/20 17:05 Freq: Status: Active Protocol: Document 04/16/20 09:45 DCW (Rec: 04/16/20 17:54 DCW [id number]) Manual Assessments Soft Tissue Assessment Soft Tissue Mobility Assessment Moderate-severe tone with tenderness to palpation 2/4: pain with wincing along R Thoracic paraspinals. Limits left spinal rotation and lateral flexion secondary to pain. At rest, pt sits with a right scoliosis for comfort. Joint Mobility Assessment Joint Mobility Assessment Severe tone in right pec results in depression and anterior shift of right GH joint. PT-OP-J Posture/Palpation/Skin Start: 04/16/20 17:05 Freq: Status: Active Protocol: Document 04/16/20 09:45 DCW (Rec: 04/16/20 17:54 DCW [id number]) Posture Evaluation Position Sitting T-Spine Posture Flexible Scoliosis on (R) Shoulder Posture (R) Forward Scapula Posture (R) Protracted,(R) Depressed PT-OP-L Special Tests Start: 04/16/20 17:05 Freq: Status: Active Protocol: Document 04/16/20 09:45 DCW (Rec: 04/16/20 17:54 DCW [id number]) Special Tests Shoulder Special Tests Passive ER Rotator Cuff Test Results Positive R Empty Can Test Results Positive R Lift-Off Rotator Cuff Test Results Positive R Painful Arc Test Results Positive R Belly Press Test Results Negative PT-OP-Q Treatments Start: 04/16/20 17:05 Freq: Status: Active Protocol: Document 05/06/20 11:15 DCW (Rec: 05/06/20 12:04 DCW [id number]) Cardio Equipment Upper Body Ergometer (UBE) Duration (Minutes) 3 RPM 60 Seat Position 15 Height 4 Other Fwd/Bkwd Therapeutic Exercises Supine Exercises 2 Supine Exercise Name Serratus Punch Equipment Used PVC 1 Supine Exercise Name Flexion /c PVC Comments Pain-free AAROM Sitting Exercises 1 Sitting Exercise Name GH Flexion Side bilateral Equipment Used Pulleys Comments Pain-free ROM Manual Therapy Treatment Soft Tissue Mobilization 6 Body Location R Thoracic Paraspinals Mobilization Type Strumming,Sustained Pressure Intensity/Depth Moderate Body Position Sidelying 5 Body Location R Levator Body Position Supine 4 Body Location R Scalenes Body Position Supine 3 Body Location R Infraspinatus Mobilization Type Strumming,Sustained Pressure Intensity/Depth Moderate Body Position Supine 2 Body Location R UT Mobilization Type Strumming,Sustained Pressure Intensity/Depth Moderate Body Position Supine 1 Body Location Pec Mobilization Type Strumming,Sustained Pressure Intensity/Depth Moderate Body Position Supine Joint Mobilizations 2 Joint R Scapulothoracic Direction Lateral Grade III Body Position Supine 1 Joint R GH Direction Inferior Grade III Body Position Supine PT-OP-R Modalities Start: 04/16/20 17:05 Freq: Status: Active Protocol: Document 04/27/20 11:15 DCW (Rec: 04/27/20 11:56 DCW [id number]) Electric Stimulation Electric Stimulation Interferential Current (IFC) Body Location R Shoulder Duration (Minutes) 15 Cycle Continuous Patient Position Supine PT-OP-T Assessment and Plan Start: 04/16/20 17:05 Freq: Status: Active Protocol: Document 05/06/20 11:15 DCW (Rec: 05/06/20 12:04 DCW [id number]) Physical Therapy Assessment Impairments Impairments Functional Activities, Functional Mobility,Pain, Posture,ROM,Soft Tissue Mobility,Strength,Tone Goals Three Impairment R shoulder ROM and pain limit pt's overhead activities Prison Goal (LTG) Pt R shoulder special tests ( Lift off, painful arc, Passive ER) to test negative to demonstrate pt's improved ability to perform oil changes on his car. LTG Duration 06/17/20 Two Impairment Pt unable to position in neutral spine d/t pain causing flexible scoliosis Digital Color Press Operator Goal (LTG) Pt to stand with appropriate spine and shoulder positioning with no increased pain LTG Duration 06/17/20 One Impairment Pt does not have an appropriate home exercise program Short Term Goal (STG) Pt to be independent and compliant with an appropriate HEP STG Duration 05/17/20 Assessment Summary Assessment Pt struggling with pain and mobility. Pt at this time would prefer to return to referring physician to discuss possible MRI. Pt chart will be on hold until next step is determined. Physical Therapy Plan Frequency and Duration Frequency of Treatment 2x/Week Duration of Treatment Two months Plan of Care Start Date 04/16/20 Plan of Care End Date 06/17/20 Therapeutic Interventions Therapeutic Interventions Home Exercise Program,Joint Mobilizations,Manual Therapy, Patient/Caregiver Education, Self-Care/Home Management,Soft Tissue Mobilization, Therapeutic Activities, Therapeutic Exercises Modalities Cold Pack/Ice Massage,Electric Stimulation,Hot Packs, Ultrasound Next Visit Focus/Plan Next Note Type Treatment Note Next Visit Plan Shoulder ROM/strengthening, STM on mid-back and R shoulder , Posture training
--- NOTE | 2020-07-16 11:18 | PT.OPDS ---
Current Diagnoses Pain in right shoulder (05/06/20) Stiffness of right shoulder, not elsewhere classified (05/06/20) Pain in thoracic spine (05/06/20) Dorsalgia, unspecified (05/06/20) Abnormal posture (05/06/20) Sprain of right rotator cuff capsule, subsequent encounter (05/06/20) Visit Care Team Role Provider Type Newton Purdy MD Attending Provider Physician Primary Care Provider Referring Provider Specialty: [facility] Address: [address] [place] [address], [place], [facility] Email: [email or web address] Visit Number Visit Number 5 Discharge Summary PT-OP-B Current Condition Start: 04/16/20 17:05 Freq: Status: Active Protocol: Document 04/16/20 09:45 DCW (Rec: 04/16/20 17:54 DCW [id number]) Current Condition History of Current Condition Onset Date ~6 months Current Complaints Back pain, shoulder pain, abnormal posturing History of Current Condition Pt is a 59 year old male presenting with a six month history of mid-back pain following a fall. Pt notes that he was reshingling his roof, and at two separate times, slipped on the plywood and fell onto his back. Notes he did not fall off the roof, just slipped and landed on the roof. Pt admits that after the second time, he just laid there for 30 minutes to make sure he did not injure himself severely. Notes his back pain did not begin immediately, he thinks the actual pain started in December, but has been worsening since then. Pain is mainly on the right side, and feels better if he positions himself into right lateral trunk flexion, which is giving him very poor posture. Additionally, pt notes that one month ago, his shoulder began to get really sore, and his PCP told him it was a rotator cuff problem and gave him anti-inflammatory pills, which unfortunately pt had a bad reaction to and needed to stop taking them. Prior Treatments and Tests Thoracic x-ray: IMPRESSION: No rib trauma found, source of right-sided posterior rib pain is not seen. Depending on the clinical status follow-up by nuclear medicine bone scan may become necessary.per Guillermo Nguyen M.D. on 2019 PT-OP-C Subjective Start: 04/16/20 17:05 Freq: Status: Active Protocol: Document 05/06/20 11:15 DCW (Rec: 05/06/20 12:04 DCW [id number]) OP-PT Subjective Patient Comments Patient Comments Pt notes he was not lifting anything, but he has still had a stressful week at work, which seems to make his shoulder tighten up and hurt more. PT-OP-E Functional Tests Start: 04/16/20 17:05 Freq: Status: Active Protocol: Document 04/16/20 09:45 DCW (Rec: 04/16/20 17:54 DCW [id number]) Functional Tests Apley's Scratch Test Action 1- Left Posterior opposite should Action 1- Right Anterior opposite shoulder Action 2- Left T5 Action 2- Right C7 Action 3- Left T9 Action 3- Right L3 PT-OP-F Manual Assessment Start: 04/16/20 17:05 Freq: Status: Active Protocol: Document 04/16/20 09:45 DCW (Rec: 04/16/20 17:54 DCW [id number]) Manual Assessments Soft Tissue Assessment Soft Tissue Mobility Assessment Moderate-severe tone with tenderness to palpation 2/4: pain with wincing along R Thoracic paraspinals. Limits left spinal rotation and lateral flexion secondary to pain. At rest, pt sits with a right scoliosis for comfort. Joint Mobility Assessment Joint Mobility Assessment Severe tone in right pec results in depression and anterior shift of right GH joint. PT-OP-J Posture/Palpation/Skin Start: 04/16/20 17:05 Freq: Status: Active Protocol: Document 04/16/20 09:45 DCW (Rec: 04/16/20 17:54 DCW [id number]) Posture Evaluation Position Sitting T-Spine Posture Flexible Scoliosis on (R) Shoulder Posture (R) Forward Scapula Posture (R) Protracted,(R) Depressed PT-OP-L Special Tests Start: 04/16/20 17:05 Freq: Status: Active Protocol: Document 04/16/20 09:45 DCW (Rec: 04/16/20 17:54 DCW [id number]) Special Tests Shoulder Special Tests Passive ER Rotator Cuff Test Results Positive R Empty Can Test Results Positive R Lift-Off Rotator Cuff Test Results Positive R Painful Arc Test Results Positive R Belly Press Test Results Negative PT-OP-T Assessment and Plan Start: 04/16/20 17:05 Freq: Status: Active Protocol: Document 07/16/20 11:16 DCW (Rec: 07/16/20 11:18 DCW [id number]) Physical Therapy Assessment Assessment Summary Assessment Pt requested hold from PT until MRI was performed and he knew what his next step was. Pt has not returned for any follow-up visits following his MRI two months ago. Pt will be discharged from skilled therapy at this time, and will require a new referral in order to return. Physical Therapy Plan Discharge Physical Therapy Discharge Reasons No Longer Attending PT
== END 2020-07-24 11:27 ==
LOC: PHYS 11:15
PROVIDERS: PCP Family Medicine; Referring Provider Family Medicine; Visit Provider Family Medicine
DX: M54.9 Dorsalgia, unspecified (principal); M54.6 Pain in thoracic spine; S43.421D Sprain of right rotator cuff capsule, subsequent encounter; M25.511 Pain in right shoulder; M25.611 Stiffness of right shoulder, not elsewhere classified; R29.3 Abnormal posture
CPT/HCPCS: 97014; 97110; 97140; 97161; G0283

== ENCOUNTER → 2020-05-21 07:55 | Outpatient (CLI) | payer OTHER, SELFPAY ==
--- NOTE | 2020-05-21 | DI.MRI.S_ITS ---
PROCEDURE: MR CERVICAL SPINE WO CON INDICATIONS: DORSALGIA, UNSPECIFIED PAIN IN RIGHT SHOULDER TECHNIQUE: Noncontrast sagittal T1 spin echo and T2 fast spin echo, sagittal STIR, foraminal oblique sagittal T2 fast spin echo, and axial gradient echo or T2 fast spin echo through the cervical spine. COMPARISON: None. FINDINGS: Image quality: Excellent. Alignment and Curvature: There is normal bony alignment. Bone Marrow: Marrow demonstrates normal overall signal. Spinal Cord: Visualized spinal cord has normal size and signal. No cerebellar tonsillar herniation. Paraspinous Soft Tissues: No paravertebral masses. Prevertebral soft tissues are normal in thickness. C2-C3: Loss of disc signal. No central stenosis. No neural foraminal narrowing. No neural compression. C3-C4: Loss of disc signal. Mild, diffuse disc bulge. Small central disc protrusion. Mild narrowing of the central canal. No neural foraminal narrowing. No neural compression. C4-C5: Loss of disc signal. Mild, diffuse disc bulge. Small central disc protrusion. Mild narrowing of the central canal. Mild bilateral facet and uncovertebral hypertrophy. Mild bilateral neural foraminal narrowing. No neural compression. C5-C6: Loss of disc signal and height. Moderate, diffuse disc bulge. Moderate-sized central disc protrusion present. Severe narrowing of the central canal with compression of the nerve roots of the cauda equina. Mild bilateral facet and uncovertebral joint hypertrophy. Severe bilateral neural foraminal narrowing with compression of the exiting C6 nerve roots. C6-C7: Loss of disc signal. No central stenosis. No neural foraminal narrowing. No neural compression. C7-T1: Normal appearance. IMPRESSION: 1. Multilevel degenerative disc disease. 2. Multilevel facet and uncovertebral arthropathy. 3. Severe C5-C6 central canal narrowing with compression of the cervical spinal cord. 4. Severe bilateral C5-C6 neural foraminal narrowing with compression of the exiting bilateral C6 nerve roots. Dictated by: Meagan Wellington MD, PhD on 05/21/2020 at 9:06 Approved by: Meagan Wellington MD, PhD on 05/21/2020 at 9:53
--- NOTE | 2020-05-21 | DI.MRI.S_ITS ---
PROCEDURE: MR THORACIC SPINE WO CON INDICATIONS: DORSALGIA, UNSPECIFIED PAIN IN RIGHT SHOULDER TECHNIQUE: Noncontrast sagittal T1 spine echo and T2 fast spin echo, sagittal STIR, axial T1 and T2 fast spin echo through the thoracic spine. COMPARISON: None. FINDINGS: Image quality: Excellent. Alignment and Curvature: There is normal bony alignment. Bone Marrow: Benign, intraosseous hemangioma noted in the T7 vertebral body. No acute vertebral body compression fractures. Spinal Cord: Visualized spinal cord is normal in size and signal. Paraspinous Soft Tissues: No paravertebral masses. Miscellaneous: Mild degenerative disc changes noted throughout the thoracic spine. No central stenosis. No neural foraminal narrowing. No neural compression. IMPRESSION: 1. Multilevel degenerative disc disease. 2. No central stenosis. 3. No neural foraminal narrowing. 4. No neural compression. 5. No vertebral body compression fracture. Dictated by: Meagan Wellington MD, PhD on 05/21/2020 at 10:07 Approved by: Meagan Wellington MD, PhD on 05/21/2020 at 10:38
== END ==
PROVIDERS: PCP Family Medicine; Referring Provider Family Medicine; Visit Provider Family Medicine
DX: M54.9 Dorsalgia, unspecified (principal); M25.511 Pain in right shoulder; M50.31 Other cervical disc degeneration, high cervical region; G95.20 Unspecified cord compression
CPT/HCPCS: 72141; 72146

== ENCOUNTER → 2022-03-30 10:04 | Outpatient (CLI) | payer OTHER, SELFPAY ==
--- NOTE | 2022-03-30 | DI.RAD.S_ITS ---
PROCEDURE: XR FOOT RT MIN 3V INDICATIONS: Pain in right foot TECHNIQUE: Three views of the foot were acquired. COMPARISON: [facility], , XR FOOT RT MIN 3V, 06/05/2019, 12:16. FINDINGS: Bones: No acute fracture or dislocation. Chronic 2nd digit hallux valgus and 3rd digit hallux varus deformities. Mild degenerative change at the 1st MTP joint. Mild midfoot joint space loss and polyarticular spurring. Prominent dorsal and plantar calcaneal enthesophytes. Soft tissues: No tibiotalar joint effusion. Achilles tendon appears normal. Chronic corticated calcifications of the plantar fascia. IMPRESSION: 1. No acute changes in alignment or degree of degeneration compared to the prior study. Dictated by: Mahogany Beltre M.D. on 03/30/2022 at 13:34 Approved by: Mahogany Beltre M.D. on 03/30/2022 at 13:38
== END ==
PROVIDERS: PCP Family Medicine; Referring Provider Family Medicine; Visit Provider Family Medicine
DX: M20.11 Hallux valgus (acquired), right foot (principal); M20.31 Hallux varus (acquired), right foot; M77.31 Calcaneal spur, right foot; M79.671 Pain in right foot
CPT/HCPCS: 73630

== ENCOUNTER → 2022-06-16 07:13 | Outpatient (CLI) | payer OTHER, SELFPAY ==
--- NOTE | 2022-06-16 07:14 | DI.MRI.S_ITS ---
PROCEDURE: MR ANKLE RT WO CON INDICATIONS: Pain in right ankle and joints of right foot TECHNIQUE: Noncontrast sagittal T1 spin echo and T2 fast spin echo with fat saturation, axial proton density fast spin echo and T2 fast spin echo with fat saturation, coronal T1 spin echo and T2 fast spin echo with fat saturation through the ankle/hindfoot. COMPARISON: None. FINDINGS: Image quality: Excellent. Bones and joints: Mild diffuse ankle soft tissue swelling and edema is seen. Mild midfoot and hindfoot joint osteoarthritic changes are seen with joint space narrowing, subchondral sclerosis and edema. No fracture or dislocation. Well-defined plantar calcaneal enthesophyte is seen. No hindfoot coalitions. No osteochondral injuries of the talar dome. No pathologic joint effusions. Medial structures: The posterior tibialis, flexor digitorum longus, and flexor hallucis longus tendons are intact. The posterior tibial neurovascular bundle appears normal within the tarsal tunnel, without extrinsic mass effect. The deep layer (anterior and posterior tibiotalar ligaments) and superficial layer (tibionavicular, tibiospring, and tibiocalcaneal ligaments) of the deltoid ligament appear normal. The spring ligament components (superomedial calcaneonavicular, medioplantar oblique calcaneonavicular, and inferoplantar longitudinal ligaments) are intact. Lateral structures: The anterior talofibular, calcaneofibular, and posterior talofibular ligaments appear intact. More superiorly, the anterior and posterior tibiofibular ligaments appear intact, as is the intermalleolar ligament. The tibiofibular syndesmosis is normal in width at 2 mm or less. The peroneus longus and brevis tendons demonstrate normal location and morphology. Adjacent bony peroneal tubercle and retrotrochlear prominence are normal in size. The sinus tarsi demonstrates normal fatty signal, without edema, fibrosis, or cyst formation. Visualized sinus tarsi components (cervical ligament, interosseous talocalcaneal ligament, roots of the inferior extensor retinaculum) appear normal. The calcaneonavicular and calcaneocuboid components of the bifurcate ligament appear intact. The dorsal calcaneocuboid ligament appears intact. Anterior structures: The tibialis anterior, extensor hallucis longus, and extensor digitorum longus tendons appear intact. The dorsal talonavicular ligament appears intact. Posterior and plantar structures: There is full-thickness rupture of Achilles tendon at its insertion on posterior calcaneus with up to 4.4 cm proximal retraction of torn tendon fibers and a fluid-filled gap at the site of rupture with surrounding soft tissue edema. Medial and lateral bands of the plantar fascia are of normal thickness. No abductor digiti quinti muscle atrophy to suggest Celeste neuropathy. IMPRESSION: 1. Full-thickness rupture of Achilles tendon at its posterior calcaneal insertion with up to 4.4 cm proximal retraction of torn tendon fibers and a fluid-filled gap with surrounding edema seen at the site of rupture. 2. Diffuse ankle soft tissue swelling and edema. [place] midfoot and hindfoot joint osteoarthritis. No acute fracture or dislocation. No osteochondral injuries of talar dome. Well-defined plantar calcaneal enthesophyte. 3. Rest of the ankle tendons and ligaments are grossly intact. Dictated by: Rodolfo Helms M.D. on 06/16/2022 at 10:56 Approved by: Rodolfo Helms M.D. on 06/16/2022 at 10:58
== END ==
PROVIDERS: PCP Family Medicine; Referring Provider Podiatrist; Visit Provider Podiatrist
DX: S86.011A Strain of right Achilles tendon, initial encounter (principal); M19.071 Primary osteoarthritis, right ankle and foot; M76.61 Achilles tendinitis, right leg; M77.31 Calcaneal spur, right foot; M25.571 Pain in right ankle and joints of right foot; R26.2 Difficulty in walking, not elsewhere classified; R79.89 Other specified abnormal findings of blood chemistry
CPT/HCPCS: 73721

== ENCOUNTER → 2022-06-24 14:56 | Outpatient (CLI) | payer OTHER, SELFPAY ==
[2022-06-24 15:55] LABS: Hemoglobin A1C% w Est Avg Glu 7.8 % (4.0-6.0)
== END ==
PROVIDERS: PCP Family Medicine; Referring Provider Family Medicine; Visit Provider Family Medicine
DX: E11.621 Type 2 diabetes mellitus with foot ulcer (principal)
CPT/HCPCS: 36415; 83036